=== PATIENT | female | born 1970 | race Caucasian/White ===

== ENCOUNTER 2016-06-17 11:36 | Emergency (ER) | payer OTHER ==
[~2016-06-17] VITALS: Wt 101.2 kg
[~2016-06-17 11:36] MED LIST: ALBUTEROL0.09 MG/A2 INH; AMOXICILLIN250 MG PO; AUGMENTIN 875875 MG PO; DULCOLAX5 MG PO; FLEXERIL10 MG PO; FLONASE 0.05% 121 EA NAS; HYDROCODONE BIT1 T11 PO; MOTRIN800 MG PO; MYLICON, MYLANT80 MG PO; OMNICEF300 MG PO; PERCOCET 325 MG1 TA2 PO; SIMETHICONE80 MG PO; SUDAFED60 MG PO; ZYRTEC10 M2 PO
[2016-06-17] MEDS ORDERED: SERTRALINE HYDR50 MG PO (11:42)
== END 2016-06-17 12:50 | disposition home or self-care (01) ==
LOC: ED 11:36
DX: M79.604 Pain in right leg (principal); R03.0 Elevated blood-pressure reading, without diagnosis of hypertension; Z98.890 Other specified postprocedural states; Z90.710 Acquired absence of both cervix and uterus; Z88.6 Allergy status to analgesic agent; Z79.899 Other long term (current) drug therapy

== ENCOUNTER 2016-06-29 21:29 | Inpatient (IN) | payer OTHER ==
[~2016-06-29] VITALS: Ht 154.9 cm; Wt 102.7 kg
[~2016-06-29 21:29] MED LIST changes: +SERTRALINE HYDR50 MG PO
[2016-06-29 21:36] VITALS: BP 154/109
[2016-06-29 21:59] LABS: BASO % 0.4 % (0.0-1.0); EOS # 0.5 10*3/uL (0.0-0.4); EOS % 4.8 % (1.0-4.0); HEMOGLOBIN 12.4 g/dl (12.0-16.0); IG # 0.1 10*3/uL (0.0-0.1); LYMPH # 2.1 10*3/uL (1.3-4.4); LYMPH % 21.2 % (27.0-41.0); MEAN CELL VOLUME 84.3 fl (81.0-99.0); MEAN CORPUSCULAR HGB 28.2 pg (27.0-31.0); MEAN CORPUSCULAR HGB CONC 33.5 g/dl (33.0-37.0); MONO # 0.7 10*3/uL (0.1-1.0); MONO % 6.7 % (3.0-9.0); NEUT # 6.4 10*3/uL (2.3-7.9); NEUT % 66.4 % (47.0-73.0); PLATELET COUNT AUTOMATED 244 10*3/uL (130-400); RED BLOOD COUNT 4.39 10*6/uL (4.10-5.10); RED CELL DISTRI WIDTH 14.7 % (0-14.5); WHITE BLOOD COUNT 9.7 10*3/uL (4.8-10.8)
[2016-06-29 22:00] VITALS: BP 142/90
[2016-06-29 22:16] LABS: ALBUMIN 3.5 gm/dl (3.1-4.5); ALKALINE PHOSPHATASE 60 U/L (45-117); BILIRUBIN, TOTAL 0.4 mg/dl (0.2-1.0); BUN 14 mg/dl (7-24); CARBON DIOXIDE 22 mmol/L (21-32); CHLORIDE 109 mmol/L (98-107); EST GLOM FILT AFRICAN AMERICAN > 60 ml/min; GLUCOSE 106 mg/dL (65-99); POTASSIUM 3.6 mmol/L (3.5-5.1); SGOT/AST 18 IU/L (3-35); SGPT/ALT 32 U/L (12-78); SODIUM 142 mmol/L (136-145); TOTAL PROTEIN 7.4 gm/dL (6.4-8.2)
[2016-06-29 22:30] VITALS: BP 123/78
[2016-06-29 23:00] VITALS: BP 151/80
[2016-06-29 23:26] VITALS: BP 140/69
[2016-06-30] VITALS: BP 150/80
[2016-06-30 06:39] LABS: BASO % 0.2 % (0.0-1.0); EOS % 0.1 % (1.0-4.0); HEMATOCRIT 36.3 % (37.0-47.0); IG # 0.1 10*3/uL (0.0-0.1); LYMPH # 0.7 10*3/uL (1.3-4.4); LYMPH % 7.6 % (27.0-41.0); MEAN CORPUSCULAR HGB 28.4 pg (27.0-31.0); MEAN CORPUSCULAR HGB CONC 33.1 g/dl (33.0-37.0); MEAN PLATELET VOLUME 10.1 fl (9.6-12.3); MONO # 0.1 10*3/uL (0.1-1.0); MONO % 1.1 % (3.0-9.0); NEUT # 8.7 10*3/uL (2.3-7.9); PLATELET COUNT AUTOMATED 256 10*3/uL (130-400); RED BLOOD COUNT 4.22 10*6/uL (4.10-5.10); WHITE BLOOD COUNT 9.7 10*3/uL (4.8-10.8)
[2016-06-30 06:53] LABS: CKMB 1.1 ng/ml (0.5-3.6); CPK 251 U/L (26-192); TROPONIN I < 0.015 ng/ml (<0.045)
[2016-06-30 06:56] LABS: HEMOGLOBIN A1c 5.8 % (4.8-5.6)
[2016-06-30 07:00] LABS: PROTHROMBIN TIME 10.7 SECONDS (9.0-12.4)
[2016-06-30 07:10] LABS: ALBUMIN 3.5 gm/dl (3.1-4.5); BUN 11 mg/dl (7-24); CARBON DIOXIDE 18 mmol/L (21-32); CHLORIDE 107 mmol/L (98-107); GLUCOSE 171 mg/dL (65-99); MAGNESIUM 1.5 mg/dL (1.5-2.1); PHOSPHOROUS 2.4 mg/dL (2.5-4.9); POTASSIUM 3.6 mmol/L (3.5-5.1); SGOT/AST 18 IU/L (3-35); SGPT/ALT 36 U/L (12-78); SODIUM 139 mmol/L (136-145)
[2016-06-30 07:17] LABS: ALKALINE PHOSPHATASE 54 U/L (45-117); BILIRUBIN, TOTAL 0.3 mg/dl (0.2-1.0); CHOLESTEROL 223 mg/dL (<200); EST GLOM FILT AFRICAN AMERICAN > 60 ml/min; FREE T4 0.81 ng/dl (0.76-1.46); HDL CHOLESTEROL 61 mg/dl (40-60); LDL CHOLESTEROL 132 mg/dL (9-159); TOTAL PROTEIN 7.7 gm/dL (6.4-8.2); TRIGLYCERIDES 150 mg/dl (<150); VLDL CHOLESTEROL 30 mg/dL (6-40)
[2016-06-30 07:50] LABS: FOLIC ACID 8.81 ng/mL (>5.38); VITAMIN D, 25-HYDROXY 17.1 ng/mL (30-100)
[2016-06-30 08:00] VITALS: BP 134/60
[2016-06-30] MEDS ORDERED: AUGMENTIN 875875 MG PO (10:52)
[2016-06-30] MEDS ORDERED: PREDNISONE10 MG PO (10:52)
== END 2016-06-30 11:27 | disposition home or self-care (01) | DRG 202 ==
LOC: ED 21:29 → 4E 23:26 → EDHOLD 23:26 → 4E 23:53
PROVIDERS: Hospitalist; Nurse Practitioner Family
DX: J45.901 Unspecified asthma with (acute) exacerbation (principal); E46 Unspecified protein-calorie malnutrition; E83.39 Other disorders of phosphorus metabolism; Z68.41 Body mass index [BMI] 40.0-44.9, adult; F41.9 Anxiety disorder, unspecified; J32.8 Other chronic sinusitis; J01.00 Acute maxillary sinusitis, unspecified; E55.9 Vitamin D deficiency, unspecified; E78.5 Hyperlipidemia, unspecified; R00.0 Tachycardia, unspecified; Z88.8 Allergy status to other drugs, medicaments and biological substances; Z79.2 Long term (current) use of antibiotics; Z79.899 Other long term (current) drug therapy

== ENCOUNTER 2018-07-04 13:37 | Emergency (ER) | payer OTHER ==
[~2018-07-04] VITALS: Ht 154.9 cm; Wt 97.5 kg
[~2018-07-04 13:37] MED LIST changes: +PREDNISONE10 MG PO
[2018-07-04 14:08] LABS: BASO # 0.1 10*3/uL (0.0-0.1); BASO % 0.4 % (0.0-1.0); EOS # 0.2 10*3/uL (0.0-0.4); EOS % 1.6 % (1.0-4.0); HEMATOCRIT 39.5 % (37.0-47.0); HEMOGLOBIN 13.1 g/dl (12.0-16.0); LYMPH # 2.3 10*3/uL (1.3-4.4); LYMPH % 15.9 % (27.0-41.0); MEAN CELL VOLUME 87.4 fl (81.0-99.0); MEAN CORPUSCULAR HGB CONC 33.2 g/dl (33.0-37.0); MEAN PLATELET VOLUME 9.7 fl (9.6-12.3); MONO # 0.9 10*3/uL (0.1-1.0); MONO % 6.1 % (3.0-9.0); NEUT % 75.5 % (47.0-73.0); PLATELET COUNT AUTOMATED 307 10*3/uL (130-400); RED BLOOD COUNT 4.52 10*6/uL (4.10-5.10); RED CELL DISTRI WIDTH 14.5 % (0-14.5); WHITE BLOOD COUNT 14.5 10*3/uL (4.8-10.8)
[2018-07-04 14:22] LABS: ALBUMIN 3.2 gm/dl (3.1-4.5); CREATININE 1.21 mg/dL (0.55-1.02); POTASSIUM 4.1 mmol/L (3.5-5.1); TOTAL PROTEIN 7.5 gm/dL (6.4-8.2)
== END 2018-07-04 15:48 | disposition home or self-care (01) ==
LOC: ED 13:37
PROVIDERS: Nurse Practitioner Family
DX: B27.90 Infectious mononucleosis, unspecified without complication (principal); R59.0 Localized enlarged lymph nodes; J02.9 Acute pharyngitis, unspecified; Z79.899 Other long term (current) drug therapy; Z88.6 Allergy status to analgesic agent

== ENCOUNTER 2018-09-01 19:20 | Emergency (ER) | payer OTHER ==
[~2018-09-01] VITALS: Ht 154.9 cm; Wt 99.8 kg
[2018-09-01] MEDS ORDERED: MIRALAX POWDER17 G1 PO (20:31)
== END 2018-09-01 20:35 | disposition home or self-care (01) ==
LOC: ED 19:20
DX: K64.4 Residual hemorrhoidal skin tags (principal); K64.8 Other hemorrhoids; K59.00 Constipation, unspecified; Z88.6 Allergy status to analgesic agent; Z79.899 Other long term (current) drug therapy

== ENCOUNTER 2018-10-20 11:59 | Emergency (ER) | payer OTHER ==
[~2018-10-20] VITALS: Ht 152.4 cm; Wt 117.9 kg
[~2018-10-20 11:59] MED LIST changes: +MIRALAX POWDER17 G1 PO
== END 2018-10-20 14:15 | disposition home or self-care (01) ==
LOC: ED 11:59
DX: B34.9 Viral infection, unspecified (principal); H93.8X3 Other specified disorders of ear, bilateral; Z88.8 Allergy status to other drugs, medicaments and biological substances; Z79.899 Other long term (current) drug therapy

== ENCOUNTER 2019-01-23 07:29 | Emergency (ER) | payer OTHER ==
[~2019-01-23] VITALS: Ht 154.9 cm; Wt 106.6 kg
--- NOTE | ~2019-01-23 | EKG ---
[place], [place] ELECTROCARDIOGRAM REPORT NAME: SAIMA OCHOA UNIT #: [id number] ROOM: DOCTOR: EPIPHANY DRAFT REPORT BIRTHDATE: [birth year] [facility] Test Date: 2019-01-23 Test Time: 07:30:08 Pat Name: SAIMA OCHOA Department: Room: Gender: F Health Manager: : [id number] Requested By: MONALISA POSADA Order Number: [id number] Reading MD: Corwin Murphy MD Measurements Intervals [place] Rate: 84 P: 10 [place]: 151 QRS: 55 QRSD: 97 T: 25 QT: 367 QTc: 434 Interpretive Statements Sinus rhythm Nonspecific ST T changes Electronically Signed On 01-24-2019 3:40:51 PST by Corwin Murphy MD CM:EKGRPT:ELECTROCARDIOGRAM REPORT 0730 [id number] MONALISA BUCIO DRAFT REPORT MONALISA POSADA MD
[2019-01-23 07:56] LABS: BASO # 0.1 10*3/uL (0.0-0.1); BASO % 0.4 % (0.0-1.0); EOS # 0.3 10*3/uL (0.0-0.4); EOS % 2.1 % (1.0-4.0); HEMATOCRIT 36.7 % (37.0-47.0); HEMOGLOBIN 12.1 g/dl (12.0-16.0); LYMPH # 2.6 10*3/uL (1.3-4.4); MEAN CELL VOLUME 87.2 fl (81.0-99.0); MEAN CORPUSCULAR HGB 28.7 pg (27.0-31.0); MEAN PLATELET VOLUME 9.9 fl (9.6-12.3); MONO # 0.8 10*3/uL (0.1-1.0); MONO % 5.6 % (3.0-9.0); NEUT # 10.7 10*3/uL (2.3-7.9); NEUT % 73.4 % (47.0-73.0); PLATELET COUNT AUTOMATED 323 10*3/uL (130-400); RED BLOOD COUNT 4.21 10*6/uL (4.10-5.10); RED CELL DISTRI WIDTH 14.7 % (0-14.5); WHITE BLOOD COUNT 14.5 10*3/uL (4.8-10.8)
[2019-01-23 08:08] LABS: ACT PARTIAL THROMBO TIME 26.4 SECONDS (20.0-32.1); INTERNATIONAL NORM RATIO 0.9 (2.0-3.5)
[2019-01-23 08:17] LABS: ALBUMIN 3.2 gm/dl (3.1-4.5); ALKALINE PHOSPHATASE 60 U/L (45-117); BUN 13 mg/dl (7-24); CHLORIDE 109 mmol/L (98-107); CREATININE 0.85 mg/dL (0.55-1.02); POTASSIUM 3.8 mmol/L (3.5-5.1); SGOT/AST 18 IU/L (3-35); SGPT/ALT 37 U/L (12-78); SODIUM 140 mmol/L (136-145); TOTAL PROTEIN 6.9 gm/dL (6.4-8.2)
[2019-01-23 08:26] LABS: TROPONIN I < 0.015 ng/ml (<0.045)
[2019-01-23] MEDS ORDERED: PREDNISONE50 MG PO (08:37)
[2019-01-23] MEDS ORDERED: VENTOLIN 02.5 MG/3 M INH (08:37)
[2019-01-23] MEDS ORDERED: PROVENTIL HFA6.7 GM INH (08:37)
[2019-01-23] MEDS ORDERED: VIBRAMYCIN100 MG PO (08:37)
== END 2019-01-23 08:42 | disposition home or self-care (01) ==
LOC: ED 07:29
PROVIDERS: Emergency Medicine
DX: J45.901 Unspecified asthma with (acute) exacerbation (principal); E66.01 Morbid (severe) obesity due to excess calories; E78.5 Hyperlipidemia, unspecified; Z88.8 Allergy status to other drugs, medicaments and biological substances; Z79.899 Other long term (current) drug therapy

== ENCOUNTER 2020-12-07 17:39 | Emergency (ER) | payer OTHER ==
[~2020-12-07] VITALS: Ht 154.9 cm; Wt 104.3 kg
[~2020-12-07 17:39] MED LIST changes: +PREDNISONE50 MG PO; +PROVENTIL HFA6.7 GM INH; +VENTOLIN 02.5 MG/3 M INH; +VIBRAMYCIN100 MG PO
== END 2020-12-07 22:40 | disposition left against medical advice (07) ==
LOC: ED 17:39
DX: R51.9 Headache, unspecified (principal); Z53.21 Procedure and treatment not carried out due to patient leaving prior to being seen by health care provider

== ENCOUNTER 2022-07-16 22:32 | Emergency (ER) | payer OTHER ==
[~2022-07-16] VITALS: Ht 154.9 cm; Wt 99.8 kg
[2022-07-16] MEDS ORDERED: PENICILLIN VK500 MG PO (22:56)
== END 2022-07-16 23:02 | disposition home or self-care (01) ==
LOC: ED 22:32
DX: K02.9 Dental caries, unspecified (principal); Z88.8 Allergy status to other drugs, medicaments and biological substances

== ENCOUNTER 2024-08-31 19:44 | Emergency (ER) | payer OTHER ==
[~2024-08-31] VITALS: Ht 154.9 cm; Wt 102.5 kg
[~2024-08-31 19:44] MED LIST changes: +PENICILLIN VK500 MG PO
[2024-08-31] MEDS ORDERED: Ondansetron4 MG PO (20:26)
[2024-08-31] MEDS ORDERED: AMOX-CLAV 875-1 EACH PO (20:26)
[2024-08-31] MEDS ORDERED: Amoxicillin/Clavulanate Pota 875 MG TAB PO ONE (20:30)
== END 2024-08-31 20:32 | disposition home or self-care (01) ==
LOC: ED 19:44
DX: H66.91 Otitis media, unspecified, right ear (principal); R11.0 Nausea; J45.909 Unspecified asthma, uncomplicated; Z79.899 Other long term (current) drug therapy; Z88.8 Allergy status to other drugs, medicaments and biological substances; Z98.890 Other specified postprocedural states